=== PATIENT | female | born 1995 | race Two or more races ===

== ENCOUNTER → 2019-05-05 | Emergency (ER) | payer OTHER | END | disposition left against medical advice (07) | LOC: ER 05:45 | DX: Z53.20 Procedure and treatment not carried out because of patient's decision for unspecified reasons (principal) ==

== ENCOUNTER 2022-06-09 14:01 | Emergency (ER) | payer OTHER ==
[~2022-06-09] VITALS: Ht 162.6 cm; Wt 68.0 kg
== END 2022-06-09 17:27 | disposition home or self-care (01) ==
LOC: ER 14:01
DX: R53.81 Other malaise (principal); R05.8 Other specified cough

== ENCOUNTER 2022-08-26 11:43 | Emergency (ER) | payer OTHER ==
[~2022-08-26] VITALS: Ht 162.6 cm; Wt 72.6 kg
== END 2022-08-26 16:52 | disposition home or self-care (01) ==
LOC: ER 11:43
DX: B34.9 Viral infection, unspecified (principal); Z20.822 Contact with and (suspected) exposure to COVID-19